=== PATIENT | female | born 1980 | race American Indian/Alaskan Native ===

== ENCOUNTER 2018-09-29 12:53 | Emergency (ER) | payer SELFPAY ==
--- NOTE | 2018-09-29 13:01 | Emergency Department Report ---
Blank Doc - Documentation Documentation: This is a 38-year-old female that presents with vaginal bleeding and pelvic pa in. Stated is about 9 weeks . This initial assessment/diagnostic orders/clinical plan/treatment(s) is/are subject to change based on patient's health status, clinical progression and re-assessment by fellow clinical providers in the ED. Further treatment and workup at subsequent clinical providers discretion. Patient/guardians urged not to elope from the ED as their condition may be serious if not clinically assessed and managed. Initial orders include: 1- Patient sent to [facility] for further evaluation and treatment. 2- UA 3- labs 4 US OB
[2018-09-29 13:05] VITALS: BP 121/76
[2018-09-29 13:29] LABS: Basophils % (Auto) 0.5 % (0.0-1.8); Eosinophils % (Auto) 0.4 % (0.0-4.3); Hematocrit 34.2 % (30.3-42.9); Hemoglobin 11.6 gm/dl (10.1-14.3); Lymphocytes # (Auto) 2.3 K/mm3 (1.2-5.4); Lymphocytes % (Auto) 30.3 % (13.4-35.0); Mean Corpuscular HGB Conc 34 % (30-34); Mean Corpuscular Volume 85 fl (79-97); Monocytes # (Auto) 0.4 K/mm3 (0.0-0.8); Monocytes % (Auto) 5.9 % (0.0-7.3); Platelet Count 346 K/mm3 (140-440); Red Blood Count 4.02 M/mm3 (3.65-5.03); Red Cell Distribution Width 14.8 % (13.2-15.2)
[2018-09-29 13:35] LABS: Bilirubin,Urine NEG (Negative); Blood,Urine LG (Negative); Color,Urine Yellow (Yellow); Mucus,Urine FEW /HPF; Protein,Urine <15 mg/dL mg/dL (Negative); Urobilinogen,Urine < 2.0 mg/dL (<2.0)
--- NOTE | 2018-09-29 14:40 | Ultrasound Report ---
[facility]TRASOUND HISTORY: MAIN ^N ^vaginal bleeding COMPARISON: None. TECHNIQUE: Routine transabdominal OB ultrasound performed. FINDINGS: Uterus: Mildly enlarged measuring 10.4 x 7.1 x 8.2 cm. Several small fibroids are present Gestational Sac: Well-defined oval shape and intrauterine in location measuring 1 cm. Yolk Sac: Not present Embryonic/ cardiac activity:None Placenta: Too small for evaluation. Ovaries: The right ovary is not visualized. The left ovary is normal in size and appearance with nor mal blood flow, measuring 3.1 x 1.8 x 1.7 cm. Hypoechoic space-occupying mass in the left ovary with peripheral vascularity is most likely the corpus luteum. Additional findings: None. IMPRESSION 1. Possible Early intrauterine , recommend clinical correlation and follow-up imaging. Signer Name: Po Hansen MD Signed: 09/29/2018 2:21 PM Workstation Name: [id number]
[2018-09-29] MEDS ORDERED: TYLENOL PO ONE (15:59)
--- NOTE | 2018-09-29 16:00 | Emergency Department Report ---
ED Female HPI - General Chief complaint: Abdominal Pain Stated complaint: 9 WEEKS /PAIN BLEEDING Time Seen by Provider: 09/29/18 13:00 Source: patient Mode of arrival: Ambulatory Limitations: No Limitations - History of Present Illness Initial comments: 38-year-old -[place] female presents to the emergency room for complaint of abdominal pain and vaginal bleeding 3 days. Patient states that 2 days prior to today she just has spotting when she wipes. Patient states today when she woke up she attempts to go to the restroom and she had blood dripping with clots. Patient reports that the pain is on the right lower quadrant and pelvic area and is constant cramping. Patient reports her last menstrual period was 08/04/2018 she is 2 para 0. She has only started vitamins and has a visit next week. Patient is taking nothing for pain. She has an appointment at a clinic next week. Patient has had a surgical history of appendectomy. Has no other past medical history has no known drug allergies and currently only takes vitamins. MD Complaint: vaginal bleeding, dysuria, pelvic pain Onset/Timin -: days(s) Location: suprapubic Severity scale (0 -10): 7 Quality: cramping Consistency: constant Are you Now?: Yes Last Menstrual Period: 08/04/18 EDC: 05/11/19 Associated Symptoms: vaginal bleeding, abdominal pain - Related Data Sexually active: Yes : 2 Para: 0 Previous Rx's Medication Instructions Recorded Last Taken Type Nitrofurantoin [place]/M-Cryst 100 mg PO Q12HR #20 capsule 09/29/18 Unknown Rx [Macrobid CAP] Allergies Allergy/AdvReac Type Severity Reaction Status Date / Time No Known Allergies Allergy Unverified 09/29/18 12:56 ED Review of Systems ROS: Stated complaint: 9 WEEKS /PAIN BLEEDING Other details as noted in HPI Comment: All other systems reviewed and negative Gastrointestinal: abdominal pain Genitourinary: urgency, dysuria, frequency ED Past Medical Hx - Past Medical History Previous Medical History?: No - Surgical History Past Surgical History?: Yes Hx Appendectomy: Yes - Social History Smoking Status: Never Smoker Substance Use Type: None - Medications Home Medications: Home Medications Medication Instructions Recorded Confirmed Last Taken Type Nitrofurantoin [place]/M-Cryst 100 mg PO Q12HR #20 capsule 09/29/18 Unknown Rx [Macrobid CAP] ED Physical Exam - General Limitations: No Limitations General appearance: alert, in no apparent distress - Head Head exam: Present: atraumatic, normocephalic - Eye Eye exam: Present: normal appearance - ENT ENT exam: Present: mucous membranes moist - Neck Neck exam: Present: normal inspection - Respiratory Respiratory exam: Present: normal lung sounds bilaterally. Absent: respiratory distress - Cardiovascular Cardiovascular Exam: Present: regular rate, normal rhythm. Absent: systolic murmur, diastolic murmur, rubs, gallop - GI/Abdominal GI/Abdominal exam: Present: soft, tenderness (right lower quadrant and suprapubic), normal bowel sounds. Absent: distended - Back Exam Back exam: Present: normal inspection, full ROM - Neurological Exam Neurological exam: Present: alert, oriented X3, normal gait - Psychiatric Psychiatric exam: Present: normal affect, normal mood - Skin Skin exam: Present: warm, dry, intact, normal color. Absent: rash ED Course Vital Signs 09/29/18 13:01 Temperature 99.3 F Pulse Rate 93 H Respiratory 18 Rate Blood Pressure 121/76 O2 Sat by Pulse 97 Oximetry ED Medical Decision Making - Lab Data Result diagrams: 09/29/18 13:06 - Radiology Data Radiology results: report reviewed Patient: JENNIFER CLARK MR#: [id number] 15 : 1980 Acct:[id number] Age/Sex: 38 / F ADM Date: 09/29/18 Loc: ED Attending Dr: Ordering Physician: SURY JAUREGUI NP Date of Service: 09/29/18 Procedure(s): US OB transvaginal Accession Number(s): [id number] cc: SURY JAUREGUI NP [facility] HISTORY: MAIN N vaginal bleeding COMPARISON: None. TECHNIQUE: Routine transabdominal OB ultrasound performed. FINDINGS: Uterus: Mildly enlarged measuring 10.4 x 7.1 x 8.2 cm. Several small fibroids are present Gestational Sac: Well-defined oval shape and intrauterine in location measuring 1 cm. Yolk Sac: Not present Embryonic/ cardiac activity:None Placenta: Too small for evaluation. Ovaries: The right ovary is not visualized. The left ovary is normal in size and appearance with normal blood flow, measuring 3.1 x 1.8 x 1.7 cm. Hypoechoic space-occupying mass in the left ovary with peripheral vascularity is most likely the corpus luteum. Additional findings: None. IMPRESSION 1. Possible Early intrauterine , recommend clinical correlation and follow-up imaging. Signer Name: Po Hansen MD Signed: 09/29/2018 2:22 PM Workstation Name: [id number] Transcribed By: RONNY Dictated By: Po Hansen MD Electronically Authenticated By: Po Hansen MD Signed Date/Time: 09/29/181421 DD/ 20 TD/TT: - Medical Decision Making 38-year-old -[place] female presents to the emergency room for complaint of abdominal pain and vaginal bleeding 3 days. Patient states that 2 days prior to today she just has spotting when she wipes. Patient states today when she woke up she attempts to go to the restroom and she had blood dripping with clots. Patient reports that the pain is on the right lower quadrant and pelvic area and is constant cramping. Patient reports her last menstrual period was 08/04/2018 she is 2 para 0. She has only started vitamins and has a visit next week. Patient is taking nothing for pain. She has an appointment at a clinic next week. Patient has had a surgical history of appendectomy. Has no other past medical history has no known drug allergies and currently only takes vitamins. CBC within normal limits hCG 89921, urinalysis shows 33 wbc's large amount of blood moderate amount of leukoesterase. Ultrasound shows an early not able to see a gestational sac. Patient is recommended to have serial hCGs in 48 hours and an ultrasound in 1 week. Patient to take acetaminophen for pain control. Patient will be treated for urinary tract infection with Macrobid 100 mg by mouth twice a day 10 days. Patient is to continue with her vitamins keep her appointment with [facility]. Critical care attestation.: If time is entered above; I have spent that time in minutes in the direct care of this critically ill patient, excluding procedure time. ED Disposition Clinical Impression: Threatened miscarriage, Positive blood test UTI (urinary tract infection) Qualifiers: Urinary tract infection type: site unspecified Hematuria presence: with he maturia Qualified Code(s): N39.0 - Urinary tract infection, site not specified; R31.9 - Hematuria, unspecified Disposition: DC-01 TO HOME OR SELFCARE Is pt being admited?: No Does the pt Need Aspirin: No Condition: Stable Instructions: Abdominal Pain (ED), Threatened Miscarriage (ED) Additional Instructions: Please complete her antibiotics as prescribed. Please follow-up with your OB provider or emergency room in 48 hours to have a repeat hCG. Keep your appointment with your OB provider next week. You're able to take Tylenol/acetaminophen for pain. Be sure to increase her fluid intake while being . Prescriptions: Nitrofurantoin [place]/M-Cryst [Macrobid CAP] 100 mg PO Q12HR #20 capsule Referrals: ,[facility] [Other] - 3-5 Days
== END 2018-09-29 16:55 | disposition home or self-care (01) ==
LOC: ED 12:53
DX: O23.41 Unspecified infection of urinary tract in pregnancy, first trimester (principal); Z3A.01 Less than 8 weeks gestation of pregnancy; O20.0 Threatened abortion
CPT/HCPCS: 36415; 76801; 76817; 81001; 84702; 85025; 86850; 86900; 86901; 87086